=== PATIENT | female | born 1930 | race African-American/Black ===

== ENCOUNTER 2018-04-15 20:51 | Inpatient (IN) | payer MEDICARE ==
[~2018-04-15] VITALS: Ht 154.9 cm; Wt 69.9 kg
[2018-04-15 21:40] VITALS: BP 150/80
[2018-04-16] VITALS: BP 155/84
[2018-04-16] MEDS: D5 1/2NS 1,000 ML IV SCH ×2 (02:31→17:24)
[2018-04-16 05:25] VITALS: BP 153/90
[2018-04-16 08:00] VITALS: BP 151/88
[2018-04-16 09:56] LABS: BASOPHILS % (AUTO) 1.9 % (0.0-2.0); EOSINOPHILS % (AUTO) 3.4 % (0.0-3.0); HEMATOCRIT 46.2 % (37.0-47.0); HEMOGLOBIN 15.5 G/DL (12.0-16.0); LYMPHOCYTES % (AUTO) 16.6 % (20.0-45.0); MEAN CORPUSCULAR VOLUME 91 FL (80-99); MONOCYTES % (AUTO) 13.9 % (1.0-10.0); NEUTROPHILS % (AUTO) 64.2 % (45.0-75.0); PLATELET COUNT 241 K/UL (150-450); RED BLOOD COUNT 5.07 M/UL (4.20-5.40); RED CELL DISTRIBUTION WIDTH 12.3 % (11.6-14.8); WHITE BLOOD COUNT 4.4 K/UL (4.8-10.8)
[2018-04-16 09:57] LABS: ALANINE AMINOTRANSFERASE 14 U/L (12-78); ALBUMIN 3.1 G/DL (3.4-5.0); ALBUMIN/GLOBULIN RATIO 0.8 (1.0-2.7); ALKALINE PHOSPHATASE 84 U/L (46-116); ANION GAP 8 mmol/L (5-15); ASPARTATE AMINO TRANSFERASE 19 U/L (15-37); BILIRUBIN,TOTAL 0.9 MG/DL (0.2-1.0); BLOOD UREA NITROGEN 7 mg/dL (7-18); CALCIUM 9.5 MG/DL (8.5-10.1); CARBON DIOXIDE 26 MMOL/L (21-32); CHLORIDE 105 MMOL/L (98-107); CREATININE 0.7 MG/DL (0.55-1.30); PHOSPHORUS 2.7 MG/DL (2.5-4.9); POTASSIUM 3.4 MMOL/L (3.5-5.1); SODIUM 139 MMOL/L (136-145)
[2018-04-16 12:00] VITALS: BP 159/79
--- NOTE | 2018-04-16 13:44 | Consultation ---
History of Present Illness General Date patient seen: Apr 16, 2018 Present Illness HPI 88 year old female with hx of dementia was taken by paramedics to [facility] with CC of confusion. she was found by her landlord on the floor, not being able to get up and was confused. Initial w/u in [place] was negative. She is transferred to [facility] for further w/u. Pt is only oriented to herself. Agitated at times and wants to get up and walk. Allergies: Coded Allergies: NO KNOWN ALLERGIES (Verified Allergy, Unknown, 04/16/18) Patient History Healthcare decision maker N Resuscitation status Advanced Directive on File Past Medical/Surgical History Past Medical/Surgical History: (1) Advanced dementia Review of Systems All Other Systems: negative except mentioned in HPI Physical Exam General Appearance: cachetic Lines, tubes and drains: peripheral HEENT: normocephalic, atraumatic Neck: non-tender, supple Respiratory/Chest: chest wall non-tender, lungs clear Cardiovascular/Chest: normal peripheral pulses, normal rate Abdomen: normal bowel sounds Genitourinary/Rectal: normal genital exam Extremities: normal range of motion Last 24 Hour Vital Signs Date Time Temp Pulse Resp B/P (MAP) Pulse Ox O2 Delivery O2 Flow Rate FiO2 04/16/18 12:00 98.4 72 18 159/79 (105) 98 98.4 04/16/18 09:00 Room Air 04/16/18 08:00 98.2 69 19 151/88 (109) 98 98.2 04/16/18 05:25 153/90 (111) 04/16/18 05:16 97.1 75 18 100 97.1 04/16/18 00:00 97.0 78 18 155/84 (107) 97 97.0 04/15/18 22:00 Room Air 04/15/18 21:40 97.7 77 18 150/80 (103) 98 97.7 Intake and Output 04/15/18 04/16/18 19:00 07:00 # Voids 1 Laboratory Tests Test 04/16/18 08:50 White Blood Count 4.4 K/UL (4.8-10.8) L Red Blood Count 5.07 M/UL (4.20-5.40) Hemoglobin 15.5 G/DL (12.0-16.0) Hematocrit 46.2 % (37.0-47.0) Mean Corpuscular Volume 91 FL (80-99) Mean Corpuscular Hemoglobin 30.5 PG (27.0-31.0) Mean Corpuscular Hemoglobin Concent 33.5 G/DL (32.0-36.0) Red Cell Distribution Width 12.3 % (11.6-14.8) Platelet Count 241 K/UL (150-450) Mean Platelet Volume 9.0 FL (6.5-10.1) Neutrophils (%) (Auto) 64.2 % (45.0-75.0) Lymphocytes (%) (Auto) 16.6 % (20.0-45.0) L Monocytes (%) (Auto) 13.9 % (1.0-10.0) H Eosinophils (%) (Auto) 3.4 % (0.0-3.0) H Basophils (%) (Auto) 1.9 % (0.0-2.0) Sodium Level 139 MMOL/L (136-145) Potassium Level 3.4 MMOL/L (3.5-5.1) L Chloride Level 105 MMOL/L (98-107) Carbon Dioxide Level 26 MMOL/L (21-32) Anion Gap 8 mmol/L (5-15) Blood Urea Nitrogen 7 mg/dL (7-18) Creatinine 0.7 MG/DL (0.55-1.30) Estimat Glomerular Filtration Rate mL/min (>60) Glucose Level 94 MG/DL (74-106) Calcium Level 9.5 MG/DL (8.5-10.1) Phosphorus Level 2.7 MG/DL (2.5-4.9) Magnesium Level 1.8 MG/DL (1.8-2.4) Total Bilirubin 0.9 MG/DL (0.2-1.0) Aspartate Amino Transf (AST/SGOT) 19 U/L (15-37) Alanine Aminotransferase (ALT/SGPT) 14 U/L (12-78) Alkaline Phosphatase 84 U/L (46-116) Troponin I 0.018 ng/mL (0.000-0.056) Total Protein 6.8 G/DL (6.4-8.2) Albumin 3.1 G/DL (3.4-5.0) L Globulin 3.7 g/dL Albumin/Globulin Ratio 0.8 (1.0-2.7) L Height (Feet): 5 Height (Inches): 1.00 Weight (Pounds): 106 Medications Current Medications Medications (Trade) Dose Ordered Sig/Lucio Route PRN Reason Start Time Stop Time Status Last Admin Dose Admin Acetaminophen (Tylenol) 650 mg Q6H PRN ORAL Mild Pain/Temp > 100.5 04/16/18 00:00 05/16/18 00:00 Dextrose/Sodium Chloride 1,000 ml @ 75 mls/hr [id number] IV 04/16/18 02:00 05/16/18 01:59 04/16/18 02:31 Lorazepam (Ativan) 0.5 mg Q6H PRN ORAL For Anxiety 04/16/18 06:45 04/23/18 06:44 Assessment/Plan Problem List: (1) Severe protein-calorie malnutrition ICD Codes: E43 - Unspecified severe protein-calorie malnutrition SNOMED: 009719488 (2) Failure to thrive SNOMED: 96141644 (3) Advanced dementia ICD Codes: F03.90 - Unspecified dementia without behavioral disturbance SNOMED: 81241151 Assessment/Plan psych evaluation pt/ot social service evaluation for safety of home dvt prophylaxis symptomatic treatment Gregor Jacobson MD Apr 16, 2018 13:44
--- NOTE | 2018-04-16 13:55 | Consultation ---
History of Present Illness General Date patient seen: Apr 16, 2018 Present Illness HPI 88 year old female with hx of dementia was taken by paramedics to [facility] with CC of confusion. the pt has been having waxing and waning of conciseness agitated sitter in room Allergies: Coded Allergies: NO KNOWN ALLERGIES (Verified Allergy, Unknown, 04/16/18) Patient History Limited by: medical condition History Provided By: Patient, Medical Record, PMD Healthcare decision maker N Resuscitation status Advanced Directive on File Past Medical/Surgical History Past Medical/Surgical History: (1) Altered mental status (2) Advanced dementia (3) Failure to thrive (4) Severe protein-calorie malnutrition Review of Systems Psychiatric: Reports: prior hx, anxiety, depressed feelings Physical Exam General Appearance: no apparent distress, alert, confused Neurologic: depressed affect Last 24 Hour Vital Signs Date Time Temp Pulse Resp B/P (MAP) Pulse Ox O2 Delivery O2 Flow Rate FiO2 04/16/18 12:00 98.4 72 18 159/79 (105) 98 98.4 04/16/18 09:00 Room Air 04/16/18 08:00 98.2 69 19 151/88 (109) 98 98.2 04/16/18 05:25 153/90 (111) 04/16/18 05:16 97.1 75 18 100 97.1 04/16/18 00:00 97.0 78 18 155/84 (107) 97 97.0 04/15/18 22:00 Room Air 04/15/18 21:40 97.7 77 18 150/80 (103) 98 97.7 Intake and Output 04/15/18 04/16/18 19:00 07:00 # Voids 1 Laboratory Tests Test 04/16/18 08:50 White Blood Count 4.4 K/UL (4.8-10.8) L Red Blood Count 5.07 M/UL (4.20-5.40) Hemoglobin 15.5 G/DL (12.0-16.0) Hematocrit 46.2 % (37.0-47.0) Mean Corpuscular Volume 91 FL (80-99) Mean Corpuscular Hemoglobin 30.5 PG (27.0-31.0) Mean Corpuscular Hemoglobin Concent 33.5 G/DL (32.0-36.0) Red Cell Distribution Width 12.3 % (11.6-14.8) Platelet Count 241 K/UL (150-450) Mean Platelet Volume 9.0 FL (6.5-10.1) Neutrophils (%) (Auto) 64.2 % (45.0-75.0) Lymphocytes (%) (Auto) 16.6 % (20.0-45.0) L Monocytes (%) (Auto) 13.9 % (1.0-10.0) H Eosinophils (%) (Auto) 3.4 % (0.0-3.0) H Basophils (%) (Auto) 1.9 % (0.0-2.0) Sodium Level 139 MMOL/L (136-145) Potassium Level 3.4 MMOL/L (3.5-5.1) L Chloride Level 105 MMOL/L (98-107) Carbon Dioxide Level 26 MMOL/L (21-32) Anion Gap 8 mmol/L (5-15) Blood Urea Nitrogen 7 mg/dL (7-18) Creatinine 0.7 MG/DL (0.55-1.30) Estimat Glomerular Filtration Rate mL/min (>60) Glucose Level 94 MG/DL (74-106) Calcium Level 9.5 MG/DL (8.5-10.1) Phosphorus Level 2.7 MG/DL (2.5-4.9) Magnesium Level 1.8 MG/DL (1.8-2.4) Total Bilirubin 0.9 MG/DL (0.2-1.0) Aspartate Amino Transf (AST/SGOT) 19 U/L (15-37) Alanine Aminotransferase (ALT/SGPT) 14 U/L (12-78) Alkaline Phosphatase 84 U/L (46-116) Troponin I 0.018 ng/mL (0.000-0.056) Total Protein 6.8 G/DL (6.4-8.2) Albumin 3.1 G/DL (3.4-5.0) L Globulin 3.7 g/dL Albumin/Globulin Ratio 0.8 (1.0-2.7) L Height (Feet): 5 Height (Inches): 1.00 Weight (Pounds): 106 Medications Current Medications Medications (Trade) Dose Ordered Sig/Lucio Route PRN Reason Start Time Stop Time Status Last Admin Dose Admin Acetaminophen (Tylenol) 650 mg Q6H PRN ORAL Mild Pain/Temp > 100.5 04/16/18 00:00 05/16/18 00:00 Dextrose/Sodium Chloride 1,000 ml @ 75 mls/hr [id number] IV 04/16/18 02:00 05/16/18 01:59 04/16/18 02:31 Lorazepam (Ativan) 0.5 mg Q6H PRN ORAL For Anxiety 04/16/18 06:45 04/23/18 06:44 Assessment/Plan Assessment/Plan encephalopathy due to [facility] soft restraint dc sitter Seroquel prn and standing Tereza Macedo MD Apr 16, 2018 13:55
--- NOTE | 2018-04-16 15:36 | History & Physical ---
History and Physical History & Physicial Bassem Escudero MD Apr 16, 2018 15:35
[2018-04-16 16:00] VITALS: BP 132/70
[2018-04-16 21:00] VITALS: BP 122/66
--- NOTE | 2018-04-16 21:15 | History and Physical Report ---
DATE OF ADMISSION: 04/15/2018 CHIEF COMPLAINT: Transferred from the [facility] due to the altered mental status. HISTORY OF PRESENT ILLNESS: This is an 88-year-old very delightful female with past medical history significant for Alzheimer dementia, who was presented to the hospital from [facility] due to confusion and altered mental status. The patient was brought in by the EMS complaining about more altered than usual. She was found by the landlord sitting on the floor and arrived soiled in the ER. Shortly after initial evaluation, the patient was transferred to the [facility] for further evaluation. Extensive workup done at the [facility] including blood work, CT scan, urinalysis was essentially unremarkable. PAST MEDICAL HISTORY/PAST SURGICAL HISTORY: Significant for Alzheimer's. The patients history is very limited secondary to the patient's status at this time, very forgetful and agitated. History is mostly taken from the ER chart and EMS documentation. MEDICATIONS AT HOME: Unknown. FAMILY HISTORY: Noncontributory. ALLERGIES: No known drug allergies. SOCIAL HISTORY: No smoking, alcohol, or drugs at this time. REVIEW OF SYSTEMS: Very limited. She denies any chest pain or shortness of breath. Denies any nausea or vomiting. PHYSICAL EXAMINATION: VITAL SIGNS: Upon arrival to [place], blood pressure 148/91, pulse of 72, respirations 16, temperature 97.8. GENERAL: The patient is awake, responsive, but alert and oriented x1, to self. Denies any chest pain or shortness of breath. Very agitated. HEAD AND NECK: Pupils are equal and reactive to light. Anicteric. Neck was supple. No JVD. LUNGS: Good air entry. No wheezing or rales. Poor inspiratory effort. HEART: S1 and S2. Regular rhythm. Systolic ejection murmur was noted on chest wall, left side of the chest. ABDOMEN: Soft, nondistended, nontender. Positive bowel sounds. EXTREMITIES: No cyanosis, clubbing, or edema. NEUROLOGIC: Cranial nerves II through XII grossly intact. The patient is moving all the extremities spontaneously. Gait was not assessed due to the patient's status. RECTAL: Refused and deferred. GENITOURINARY: Refused and deferred. LABORATORY DATA: Upon arrival to [facility], sodium 139, potassium 3.4, chloride 105, bicarbonate 26, BUN 7, creatinine 0.7, glucose 94, calcium is 9.5, phosphorus 2.7, magnesium 1.8, AST of 19, ALT of 14, alkaline phosphatase 84. First troponin 0.018. Albumin is 3.1. WBC of 4.4, hemoglobin 15, hematocrit 46, platelet is 241,000. The patient's urinalysis at the [place] showed that positive leukocytosis, 5 ketones, 11-[address] of the brain showed no acute findings. No significant abnormality was identified. ASSESSMENT: 1. Altered mental status, possibly due to toxic metabolic encephalopathy. 2. Dementia. 3. Mild dehydration. 4. Hypokalemia. PLAN: Admit the patient to medical/surgical. We will follow up with Psychiatry recommendation. Monitor laboratory. hot iron worker consultation for possible placement. IV hydration. Code status at this time is Full Code. DVT prophylaxis, heparin subcutaneous. Bassem Escudero M.D. DR: Fernandez JOB#: [id number] CC:
[2018-04-17] VITALS (7 sets, daily range): BP systolic 131–143; BP diastolic 63–92
[2018-04-17] MEDS: D5 1/2NS 1,000 ML IV SCH ×3 (04:22→20:31)
--- NOTE | 2018-04-17 09:19 | Pulmonology Progress Note ---
Assessment/Plan Assessment/Plan ASSESSMENT acute toxic metabolic encephalopathy possibly due to dehydration dehydration advanced dementia severe protein calorie malnutrition hypokalemia failure to thrive pyuria, possible UTI PLAN OF CARE Med Surg floor IV fluids monitor renal parameters, electrolytes, correct electrolytes as needed avoid nephrotoxic psych eval noted per psychiatrist encephalopathy secondary to general medical condition patient started on Seroquel , per psych; discussed with nurse, will inform psych MD about excessive somnolence after Seroquel CT head in [place] no acute IC pathology, UA + pyuria , check urine cx, and do straight cath if needed DVT prophylaxis PT /OT dietary eval bowel regimen supportive care social service eval for home safety and probable placement case discussed and evaluated by supervising physician Subjective Allergies: Coded Allergies: NO KNOWN ALLERGIES (Verified Allergy, Unknown, 04/16/18) Subjective weak, lsomnolent difficult to arouse earlier had AM had Seroquel denied chest pain, SOB Objective Last 24 Hour Vital Signs Date Time Temp Pulse Resp B/P (MAP) Pulse Ox O2 Delivery O2 Flow Rate FiO2 04/17/18 08:09 99.3 63 18 136/68 (90) 97 99.3 04/17/18 04:00 97.3 68 19 138/66 (90) 96 97.3 04/17/18 00:00 98.4 74 16 131/64 (86) 97 98.4 04/16/18 21:59 Room Air 04/16/18 21:00 97.1 68 17 122/66 (84) 97 97.1 04/16/18 16:00 98.5 99 19 132/70 (90) 96 98.5 04/16/18 12:00 98.4 72 18 159/79 (105) 98 98.4 Intake and Output 04/16/18 04/17/18 19:00 07:00 Intake Total 1185 ml 675 ml Output Total 300 ml Balance 1185 ml 375 ml Intake Oral 660 ml IV Total 525 ml 675 ml Output Urine Total 300 ml # Voids 3 # Bowel Movements 1 General Appearance: no acute distress, other - frail elderly female HEENT: normocephalic, atraumatic, anicteric Respiratory/Chest: lungs clear - with moderate air exchange Cardiovascular: normal rate, no JVD Abdomen: normal bowel sounds, soft, non tender, no organomegaly Extremities: no edema, pedal pulses normal Neurologic/Psychiatric: abnormal gait, alert, responsive Musculoskeletal: atrophy - BLE Current Medications Medications (Trade) Dose Ordered Sig/Lucio Route PRN Reason Start Time Stop Time Status Last Admin Dose Admin Acetaminophen (Tylenol) 650 mg Q6H PRN ORAL Mild Pain/Temp > 100.5 04/16/18 00:00 05/16/18 00:00 Dextrose/Sodium Chloride 1,000 ml @ 75 mls/hr [id number] IV 04/16/18 02:00 05/16/18 01:59 04/17/18 04:22 Lorazepam (Ativan) 0.5 mg Q6H PRN ORAL For Anxiety 04/16/18 06:45 04/23/18 06:44 Quetiapine Fumarate (SEROquel) 25 mg EVERY 6 HOURS PRN ORAL For Anxiety 04/16/18 14:00 05/16/18 13:59 Quetiapine Fumarate (SEROquel) 25 mg Q12HR ORAL 04/16/18 21:00 05/16/18 20:59 04/17/18 08:23 Kelly Jacob NP Apr 17, 2018 09:19
--- NOTE | 2018-04-17 17:59 | Internal Med Progress Note ---
Subjective Date of Service: Apr 17, 2018 Physician Name XeniaReece Attending Physician Bassem Escudero MD Current Medications Medications (Trade) Dose Ordered Sig/Lucio Route PRN Reason Start Time Stop Time Status Last Admin Dose Admin Acetaminophen (Tylenol) 650 mg Q6H PRN ORAL Mild Pain/Temp > 100.5 04/16/18 00:00 05/16/18 00:00 Dextrose/Sodium Chloride 1,000 ml @ 75 mls/hr [id number] IV 04/16/18 02:00 05/16/18 01:59 04/17/18 04:22 Lorazepam (Ativan) 0.5 mg Q6H PRN ORAL For Anxiety 04/16/18 06:45 04/23/18 06:44 Quetiapine Fumarate (SEROquel) 25 mg EVERY 6 HOURS PRN ORAL For Anxiety 04/16/18 14:00 05/16/18 13:59 Quetiapine Fumarate (SEROquel) 25 mg Q12HR ORAL 04/16/18 21:00 05/16/18 20:59 04/17/18 08:23 Allergies: Coded Allergies: NO KNOWN ALLERGIES (Verified Allergy, Unknown, 04/16/18) ROS Limited/Unobtainable: No Constitutional: Reports: no symptoms HEENT: Reports: no symptoms Cardiovascular: Reports: no symptoms Respiratory: Reports: no symptoms Gastrointestinal/Abdominal: Reports: no symptoms Genitourinary: Reports: no symptoms Neurologic/Psychiatric: Reports: no symptoms Subjective 88 YO F admitted with altered mental status. Cover for Int Jose Manuel-Dr Escudero Objective Last Vital Signs Date Time Temp Pulse Resp B/P (MAP) Pulse Ox O2 Delivery O2 Flow Rate FiO2 04/17/18 16:07 97.2 68 16 133/63 (86) 97 97.2 04/17/18 10:33 Room Air General Appearance: WD/WN, no apparent distress, alert EENT: PERRL/EOMI, normal ENT inspection, TMs normal Neck: non-tender, normal alignment, supple, normal inspection Cardiovascular: normal peripheral pulses, normal rate, regular rhythm, no gallop/murmur, no JVD Respiratory/Chest: chest wall non-tender, lungs clear, normal breath sounds, no respiratory distress, no accessory muscle use Abdomen: normal bowel sounds, non tender, soft, no organomegaly, no mass Extremities: normal range of motion, non-tender Neurologic: delineator II-XII grossly normal, no motor/sensory deficits Skin: normal pigmentation, warm/dry Intake and Output 04/16/18 04/17/18 19:00 07:00 Intake Total 1185 ml 675 ml Output Total 300 ml Balance 1185 ml 375 ml Intake Oral 660 ml IV Total 525 ml 675 ml Output Urine Total 300 ml # Voids 3 # Bowel Movements 1 Assessment/Plan Problem List: (1) Alzheimer's dementia (2) Dehydration (3) Altered mental status Assessment & Plan: Dementia vs psychosis - see psych note (4) Severe protein-calorie malnutrition (5) Failure to thrive (6) Hypokalemia Status: progressing Reece Michaels MD Apr 17, 2018 17:59
[2018-04-18] VITALS: BP 132/62
[2018-04-18] MEDS: LORazepam 0.5mg tab ORAL PRN ×2 (00:24→06:32)
[2018-04-18 04:00] VITALS: BP 140/103
[2018-04-18 07:14] LABS: BASOPHILS % (AUTO) 0.6 % (0.0-2.0); EOSINOPHILS % (AUTO) 3.4 % (0.0-3.0); HEMATOCRIT 46.8 % (37.0-47.0); HEMOGLOBIN 15.5 G/DL (12.0-16.0); LYMPHOCYTES % (AUTO) 19.4 % (20.0-45.0); MEAN CORPUSCULAR VOLUME 92 FL (80-99); MONOCYTES % (AUTO) 15.1 % (1.0-10.0); NEUTROPHILS % (AUTO) 61.5 % (45.0-75.0); PLATELET COUNT 225 K/UL (150-450); RED BLOOD COUNT 5.07 M/UL (4.20-5.40); RED CELL DISTRIBUTION WIDTH 12.2 % (11.6-14.8); WHITE BLOOD COUNT 4.5 K/UL (4.8-10.8)
[2018-04-18 07:44] LABS: ANION GAP 6 mmol/L (5-15); BLOOD UREA NITROGEN 7 mg/dL (7-18); CALCIUM 9.8 MG/DL (8.5-10.1); CARBON DIOXIDE 28 MMOL/L (21-32); CHLORIDE 108 MMOL/L (98-107); CREATININE 0.8 MG/DL (0.55-1.30); POTASSIUM 3.8 MMOL/L (3.5-5.1); SODIUM 142 MMOL/L (136-145)
[2018-04-18 08:00] VITALS: BP 127/68
--- NOTE | 2018-04-18 08:02 | Pulmonology Progress Note ---
Assessment/Plan Assessment/Plan ASSESSMENT acute toxic metabolic encephalopathy possibly due to dehydration dehydration advanced dementia severe protein calorie malnutrition hypokalemia failure to thrive pyuria, possible UTI PLAN OF CARE Med Surg floor IV fluids and push po fluids monitor renal parameters, electrolytes, correct electrolytes as needed avoid nephrotoxic psych eval noted per psychiatrist encephalopathy secondary to general medical condition patient started on Seroquel , per psych; discussed with nurse, will inform psych MD about excessive somnolence after Seroquel CT head in [place] no acute IC pathology, UA + pyuria , check urine cx, and do straight cath if needed urine cx intiially +GNB with small colony count 40-50, repeated urine cx negative, probably contamination DVT prophylaxis PT /OT dietary eval bowel regimen supportive care social service eval for home safety and probable placement case discussed and evaluated by supervising physician Subjective Allergies: Coded Allergies: NO KNOWN ALLERGIES (Verified Allergy, Unknown, 04/16/18) Subjective weak, awake, alert earlier had AM had Seroquel denied chest pain, SOB Objective Last 24 Hour Vital Signs Date Time Temp Pulse Resp B/P (MAP) Pulse Ox O2 Delivery O2 Flow Rate FiO2 04/18/18 04:00 98.2 76 19 140/103 (115) 98 98.2 04/18/18 00:00 97.9 80 18 132/62 (85) 97 97.9 04/17/18 21:00 Room Air 04/17/18 20:00 98.1 77 17 143/92 (109) 98 98.1 04/17/18 16:07 97.2 68 16 133/63 (86) 97 97.2 04/17/18 12:00 97.3 72 19 137/70 (92) 97 97.3 04/17/18 10:33 Room Air 04/17/18 08:09 99.3 63 18 136/68 (90) 97 99.3 Intake and Output 04/17/18 04/18/18 19:00 07:00 Intake Total 975 ml 1380 ml Output Total 375 ml Balance 600 ml 1380 ml Intake Oral 600 ml 480 ml IV Total 375 ml 900 ml Output Urine Total 375 ml # Voids 1 3 Objective General Appearance: no acute distress, frail elderly female HEENT: normocephalic, atraumatic, anicteric Respiratory/Chest: lungs clear - with moderate air exchange Cardiovascular: normal rate, no JVD Abdomen: normal bowel sounds, soft, non tender, no organomegaly Extremities: no edema, pedal pulses normal Neurologic/Psychiatric: abnormal gait, alert, responsive Musculoskeletal: atrophy - BLE Laboratory Tests 04/18/18 05:40: White Blood Count 4.5L, Red Blood Count 5.07, Hemoglobin 15.5, Hematocrit 46.8, Mean Corpuscular Volume 92, Mean Corpuscular Hemoglobin 30.6, Mean Corpuscular Hemoglobin Concent 33.2, Red Cell Distribution Width 12.2, Platelet Count 225, Mean Platelet Volume 8.9, Neutrophils (%) (Auto) 61.5, Lymphocytes (%) (Auto) 19.4L, Monocytes (%) (Auto) 15.1H, Eosinophils (%) (Auto) 3.4H, Basophils (%) ( Auto) 0.6, Sodium Level 142, Potassium Level 3.8, Chloride Level 108H, Carbon Dioxide Level 28, Anion Gap 6, Blood Urea Nitrogen 7, Creatinine 0.8, Estimat Glomerular Filtration Rate , Glucose Level 89, Calcium Level 9.8 Current Medications Medications (Trade) Dose Ordered Sig/Lucio Route PRN Reason Start Time Stop Time Status Last Admin Dose Admin Acetaminophen (Tylenol) 650 mg Q6H PRN ORAL Mild Pain/Temp > 100.5 04/16/18 00:00 05/16/18 00:00 Dextrose/Sodium Chloride 1,000 ml @ 75 mls/hr [id number] IV 04/16/18 02:00 05/16/18 01:59 04/17/18 20:31 Lorazepam (Ativan) 0.5 mg Q6H PRN ORAL For Anxiety 04/16/18 06:45 04/23/18 06:44 04/18/18 06:32 Quetiapine Fumarate (SEROquel) 25 mg EVERY 6 HOURS PRN ORAL For Anxiety 04/16/18 14:00 05/16/18 13:59 Quetiapine Fumarate (SEROquel) 25 mg Q12HR ORAL 04/16/18 21:00 05/16/18 20:59 04/17/18 20:32 Kelly Jacob NP Apr 18, 2018 08:02
[2018-04-18 11:55] VITALS: BP 121/67
[2018-04-18] MEDS ORDERED: D5 1/2NS 1000ml IV ONE (15:18)
--- NOTE | 2018-04-18 15:25 | Internal Med Progress Note ---
Subjective Date of Service: Apr 18, 2018 Physician Name XeniaReece Attending Physician Bassem Escudero MD Current Medications Medications (Trade) Dose Ordered Sig/Lucio Route PRN Reason Start Time Stop Time Status Last Admin Dose Admin Acetaminophen (Tylenol) 650 mg Q6H PRN ORAL Mild Pain/Temp > 100.5 04/16/18 00:00 05/16/18 00:00 Dextrose/Sodium Chloride 1,000 ml @ 75 mls/hr [id number] IV 04/16/18 02:00 05/16/18 01:59 04/17/18 20:31 Lorazepam (Ativan) 0.5 mg Q6H PRN ORAL For Anxiety 04/16/18 06:45 04/23/18 06:44 04/18/18 06:32 Quetiapine Fumarate (SEROquel) 25 mg EVERY 6 HOURS PRN ORAL For Anxiety 04/16/18 14:00 05/16/18 13:59 Quetiapine Fumarate (SEROquel) 25 mg Q12HR ORAL 04/16/18 21:00 05/16/18 20:59 04/18/18 08:39 Allergies: Coded Allergies: NO KNOWN ALLERGIES (Verified Allergy, Unknown, 04/16/18) ROS Limited/Unobtainable: Yes Subjective 88 YO F admitted with altered mental status. Cover for Int Med-Dr Escudero Objective Last Vital Signs Date Time Temp Pulse Resp B/P (MAP) Pulse Ox O2 Delivery O2 Flow Rate FiO2 04/18/18 11:55 97.2 80 20 121/67 (85) 98 97.2 04/18/18 09:00 Room Air Laboratory Tests Test 04/18/18 05:40 White Blood Count 4.5 K/UL (4.8-10.8) L Red Blood Count 5.07 M/UL (4.20-5.40) Hemoglobin 15.5 G/DL (12.0-16.0) Hematocrit 46.8 % (37.0-47.0) Mean Corpuscular Volume 92 FL (80-99) Mean Corpuscular Hemoglobin 30.6 PG (27.0-31.0) Mean Corpuscular Hemoglobin Concent 33.2 G/DL (32.0-36.0) Red Cell Distribution Width 12.2 % (11.6-14.8) Platelet Count 225 K/UL (150-450) Mean Platelet Volume 8.9 FL (6.5-10.1) Neutrophils (%) (Auto) 61.5 % (45.0-75.0) Lymphocytes (%) (Auto) 19.4 % (20.0-45.0) L Monocytes (%) (Auto) 15.1 % (1.0-10.0) H Eosinophils (%) (Auto) 3.4 % (0.0-3.0) H Basophils (%) (Auto) 0.6 % (0.0-2.0) Sodium Level 142 MMOL/L (136-145) Potassium Level 3.8 MMOL/L (3.5-5.1) Chloride Level 108 MMOL/L (98-107) H Carbon Dioxide Level 28 MMOL/L (21-32) Anion Gap 6 mmol/L (5-15) Blood Urea Nitrogen 7 mg/dL (7-18) Creatinine 0.8 MG/DL (0.55-1.30) Estimat Glomerular Filtration Rate mL/min (>60) Glucose Level 89 MG/DL (74-106) Calcium Level 9.8 MG/DL (8.5-10.1) Microbiology Date/Time Source Procedure Growth Status 04/17/18 11:00 Straight Cath Urine Culture - Preliminary NO GROWTH Resulted 04/16/18 20:22 Urine,Clean Catch Urine Culture - Preliminary Gram Negative Bacillus 1 Resulted Intake and Output 04/17/18 04/18/18 19:00 07:00 Intake Total 975 ml 1380 ml Output Total 375 ml Balance 600 ml 1380 ml Intake Oral 600 ml 480 ml IV Total 375 ml 900 ml Output Urine Total 375 ml # Voids 1 3 Objective General Appearance: WD/WN, no apparent distress, alert EENT: PERRL/EOMI, normal ENT inspection, TMs normal Neck: non-tender, normal alignment, supple, normal inspection Cardiovascular: normal peripheral pulses, normal rate, regular rhythm, no gallop/murmur, no JVD Respiratory/Chest: chest wall non-tender, lungs clear, normal breath sounds, no respiratory distress, no accessory muscle use Abdomen: normal bowel sounds, non tender, soft, no organomegaly, no mass Extremities: normal range of motion, non-tender Neurologic: food beverage manager II-XII grossly normal, no motor/sensory deficits Skin: normal pigmentation, warm/dry Assessment/Plan Problem List: (1) Alzheimer's dementia (2) Dehydration (3) Altered mental status Assessment & Plan: Dementia vs psychosis - see psych note (4) Severe protein-calorie malnutrition (5) Failure to thrive (6) Hypokalemia Status: not improved Reece Michaels MD Apr 18, 2018 15:25
[2018-04-18 16:00] VITALS: BP 103/68
[2018-04-18 20:00] VITALS: BP 139/74
[2018-04-18] MEDS: D5 1/2NS 1,000 ML IV SCH (20:26)
[2018-04-19] VITALS: BP 145/69
[2018-04-19 04:00] VITALS: BP 141/78
[2018-04-19 07:39] LABS: BASOPHILS % (AUTO) 0.7 % (0.0-2.0); EOSINOPHILS % (AUTO) 3.1 % (0.0-3.0); HEMATOCRIT 45.6 % (37.0-47.0); HEMOGLOBIN 15.4 G/DL (12.0-16.0); LYMPHOCYTES % (AUTO) 16.4 % (20.0-45.0); MEAN CORPUSCULAR VOLUME 92 FL (80-99); MONOCYTES % (AUTO) 13.9 % (1.0-10.0); NEUTROPHILS % (AUTO) 65.9 % (45.0-75.0); PLATELET COUNT 221 K/UL (150-450); RED BLOOD COUNT 4.96 M/UL (4.20-5.40); RED CELL DISTRIBUTION WIDTH 12.3 % (11.6-14.8)
[2018-04-19 07:56] LABS: ANION GAP 7 mmol/L (5-15); BLOOD UREA NITROGEN 5 mg/dL (7-18); CALCIUM 9.6 MG/DL (8.5-10.1); CARBON DIOXIDE 29 MMOL/L (21-32); CHLORIDE 108 MMOL/L (98-107); CREATININE 0.7 MG/DL (0.55-1.30); POTASSIUM 3.4 MMOL/L (3.5-5.1); SODIUM 143 MMOL/L (136-145)
[2018-04-19 08:00] VITALS: BP 165/75
--- NOTE | 2018-04-19 09:13 | Pulmonology Progress Note ---
Assessment/Plan Assessment/Plan ASSESSMENT acute toxic metabolic encephalopathy possibly due to dehydration -resolving dehydration advanced dementia severe protein calorie malnutrition hypokalemia failure to thrive pyuria, possible UTI with E coli PLAN OF CARE Med Surg floor IV fluids and push po fluids monitor renal parameters, electrolytes, correct electrolytes as needed avoid nephrotoxic psych eval noted per psychiatrist encephalopathy secondary to general medical condition patient started on Seroquel , per psych; discussed with nurse, will inform psych MD about excessive somnolence after Seroquel CT head in [place] no acute IC pathology, UA + pyuria , check urine cx, and do straight cath if needed urine cx initially +E coli with small colony count 40-50, repeated urine cx negative, probably contamination DVT prophylaxis PT /OT dietary eval bowel regimen supportive care social service eval for home safety and probable placement dc plan case discussed and evaluated by supervising physician Subjective Allergies: Coded Allergies: NO KNOWN ALLERGIES (Verified Allergy, Unknown, 04/16/18) Subjective weak, awake, alert denied chest pain, SOB K-3.4 Objective Last 24 Hour Vital Signs Date Time Temp Pulse Resp B/P (MAP) Pulse Ox O2 Delivery O2 Flow Rate FiO2 04/19/18 08:08 Room Air 04/19/18 08:00 84 18 165/75 (105) 95 04/19/18 04:00 97.3 70 18 141/78 (99) 100 97.3 04/19/18 00:00 98.1 86 17 145/69 (94) 98 98.1 04/18/18 21:00 Room Air 04/18/18 20:00 97.6 83 18 139/74 (95) 96 97.6 04/18/18 16:00 97.2 67 20 103/68 (80) 95 97.2 04/18/18 11:55 97.2 80 20 121/67 (85) 98 97.2 Intake and Output 04/18/18 04/19/18 19:00 07:00 Intake Total 575 ml 1267.5 ml Balance 575 ml 1267.5 ml Intake Oral 500 ml 480 ml IV Total 75 ml 787.5 ml # Voids 3 3 Objective General Appearance: no acute distress, frail elderly female HEENT: normocephalic, atraumatic, anicteric Respiratory/Chest: lungs clear - with moderate air exchange Cardiovascular: normal rate, no JVD Abdomen: normal bowel sounds, soft, non tender, no organomegaly Extremities: no edema, pedal pulses normal Neurologic/Psychiatric: abnormal gait, alert, responsive Musculoskeletal: atrophy - BLE Microbiology Date/Time Source Procedure Growth Status 04/17/18 11:00 Straight Cath Urine Culture - Preliminary NO GROWTH AFTER 24 HOURS Resulted 04/16/18 20:22 Urine,Clean Catch Urine Culture - Final Escherichia Coli Complete Laboratory Tests 04/19/18 06:20: White Blood Count 5.0, Red Blood Count 4.96, Hemoglobin 15.4, Hematocrit 45.6, Mean Corpuscular Volume 92, Mean Corpuscular Hemoglobin 31.0, Mean Corpuscular Hemoglobin Concent 33.7, Red Cell Distribution Width 12.3, Platelet Count 221, Mean Platelet Volume 8.4, Neutrophils (%) (Auto) 65.9, Lymphocytes (%) (Auto) 16.4L, Monocytes (%) (Auto) 13.9H, Eosinophils (%) (Auto) 3.1H, Basophils (%) ( Auto) 0.7, Sodium Level 143, Potassium Level 3.4L, Chloride Level 108H, Carbon Dioxide Level 29, Anion Gap 7, Blood Urea Nitrogen 5L, Creatinine 0.7, Estimat Glomerular Filtration Rate , Glucose Level 84, Calcium Level 9.6 Current Medications Medications (Trade) Dose Ordered Sig/Lucio Route PRN Reason Start Time Stop Time Status Last Admin Dose Admin Acetaminophen (Tylenol) 650 mg Q6H PRN ORAL Mild Pain/Temp > 100.5 04/16/18 00:00 05/16/18 00:00 04/19/18 00:04 Dextrose/Sodium Chloride 1,000 ml @ 75 mls/hr [id number] IV 04/16/18 02:00 05/16/18 01:59 04/18/18 20:26 Lorazepam (Ativan) 0.5 mg Q6H PRN ORAL For Anxiety 04/16/18 06:45 04/23/18 06:44 04/18/18 06:32 Potassium Chloride (K-Dur) 40 meq ONCE ORAL 04/19/18 09:15 04/19/18 10:15 Quetiapine Fumarate (SEROquel) 25 mg EVERY 6 HOURS PRN ORAL For Anxiety 04/16/18 14:00 05/16/18 13:59 Quetiapine Fumarate (SEROquel) 25 mg Q12HR ORAL 04/16/18 21:00 05/16/18 20:59 04/19/18 08:21 Kelly Jacob NP Apr 19, 2018 09:13
[2018-04-19] MEDS: D5 1/2NS 1,000 ML IV SCH (09:43)
[2018-04-19] MEDS: LORazepam 0.5mg tab ORAL PRN ×2 (12:02→20:20)
[2018-04-19 13:02] VITALS: BP 160/80
--- NOTE | 2018-04-19 15:01 | General Progress Note ---
Assessment/Plan Status: stable Assessment/Plan encephalopathy due to [facility] [place] soft restraint Seroquel prn and standing Subjective Date patient seen: Apr 19, 2018 Neurologic/Psychiatric: Reports: anxiety, depressed, emotional problems Allergies: Coded Allergies: NO KNOWN ALLERGIES (Verified Allergy, Unknown, 04/16/18) Objective Last 24 Hour Vital Signs Date Time Temp Pulse Resp B/P (MAP) Pulse Ox O2 Delivery O2 Flow Rate FiO2 04/19/18 13:02 97.5 86 19 160/80 (106) 96 97.5 04/19/18 08:08 Room Air 04/19/18 08:00 97.4 84 18 165/75 (105) 95 97.4 04/19/18 04:00 97.3 70 18 141/78 (99) 100 97.3 04/19/18 00:00 98.1 86 17 145/69 (94) 98 98.1 04/18/18 21:00 Room Air 04/18/18 20:00 97.6 83 18 139/74 (95) 96 97.6 04/18/18 16:00 97.2 67 20 103/68 (80) 95 97.2 Intake and Output 04/18/18 04/19/18 19:00 07:00 Intake Total 575 ml 1267.5 ml Balance 575 ml 1267.5 ml Intake Oral 500 ml 480 ml IV Total 75 ml 787.5 ml # Voids 3 3 Laboratory Tests 04/19/18 06:20: White Blood Count 5.0, Red Blood Count 4.96, Hemoglobin 15.4, Hematocrit 45.6, Mean Corpuscular Volume 92, Mean Corpuscular Hemoglobin 31.0, Mean Corpuscular Hemoglobin Concent 33.7, Red Cell Distribution Width 12.3, Platelet Count 221, Mean Platelet Volume 8.4, Neutrophils (%) (Auto) 65.9, Lymphocytes (%) (Auto) 16.4L, Monocytes (%) (Auto) 13.9H, Eosinophils (%) (Auto) 3.1H, Basophils (%) ( Auto) 0.7, Sodium Level 143, Potassium Level 3.4L, Chloride Level 108H, Carbon Dioxide Level 29, Anion Gap 7, Blood Urea Nitrogen 5L, Creatinine 0.7, Estimat Glomerular Filtration Rate , Glucose Level 84, Calcium Level 9.6 Height (Feet): 5 Height (Inches): 1.00 Weight (Pounds): 106 General Appearance: alert, confused, moderate distress, agitated Tereza Macedo MD Apr 19, 2018 15:01
[2018-04-19 16:00] VITALS: BP 175/90
--- NOTE | 2018-04-19 18:12 | Internal Med Progress Note ---
Subjective Date of Service: Apr 19, 2018 Physician Name Michaels,Reece Attending Physician Bassem Escudero MD Current Medications Medications (Trade) Dose Ordered Sig/Lucio Route PRN Reason Start Time Stop Time Status Last Admin Dose Admin Acetaminophen (Tylenol) 650 mg Q6H PRN ORAL Mild Pain/Temp > 100.5 04/16/18 00:00 05/16/18 00:00 04/19/18 00:04 Dextrose/Sodium Chloride 1,000 ml @ 75 mls/hr [id number] IV 04/16/18 02:00 05/16/18 01:59 04/19/18 09:43 Lorazepam (Ativan) 0.5 mg Q6H PRN ORAL For Anxiety 04/16/18 06:45 04/23/18 06:44 04/19/18 12:02 Quetiapine Fumarate (SEROquel) 25 mg EVERY 6 HOURS PRN ORAL For Anxiety 04/16/18 14:00 05/16/18 13:59 Quetiapine Fumarate (SEROquel) 25 mg Q12HR ORAL 04/16/18 21:00 05/16/18 20:59 04/19/18 08:21 Allergies: Coded Allergies: NO KNOWN ALLERGIES (Verified Allergy, Unknown, 04/16/18) ROS Limited/Unobtainable: Yes Subjective 88 YO F admitted with altered mental status. Cover for Int Med-Dr Escudero Objective Last Vital Signs Date Time Temp Pulse Resp B/P (MAP) Pulse Ox O2 Delivery O2 Flow Rate FiO2 04/19/18 16:00 99.7 102 20 175/90 (118) 98 99.7 04/19/18 08:08 Room Air Laboratory Tests Test 04/19/18 06:20 White Blood Count 5.0 K/UL (4.8-10.8) Red Blood Count 4.96 M/UL (4.20-5.40) Hemoglobin 15.4 G/DL (12.0-16.0) Hematocrit 45.6 % (37.0-47.0) Mean Corpuscular Volume 92 FL (80-99) Mean Corpuscular Hemoglobin 31.0 PG (27.0-31.0) Mean Corpuscular Hemoglobin Concent 33.7 G/DL (32.0-36.0) Red Cell Distribution Width 12.3 % (11.6-14.8) Platelet Count 221 K/UL (150-450) Mean Platelet Volume 8.4 FL (6.5-10.1) Neutrophils (%) (Auto) 65.9 % (45.0-75.0) Lymphocytes (%) (Auto) 16.4 % (20.0-45.0) L Monocytes (%) (Auto) 13.9 % (1.0-10.0) H Eosinophils (%) (Auto) 3.1 % (0.0-3.0) H Basophils (%) (Auto) 0.7 % (0.0-2.0) Sodium Level 143 MMOL/L (136-145) Potassium Level 3.4 MMOL/L (3.5-5.1) L Chloride Level 108 MMOL/L (98-107) H Carbon Dioxide Level 29 MMOL/L (21-32) Anion Gap 7 mmol/L (5-15) Blood Urea Nitrogen 5 mg/dL (7-18) L Creatinine 0.7 MG/DL (0.55-1.30) Estimat Glomerular Filtration Rate mL/min (>60) Glucose Level 84 MG/DL (74-106) Calcium Level 9.6 MG/DL (8.5-10.1) Microbiology Date/Time Source Procedure Growth Status 04/17/18 11:00 Straight Cath Urine Culture - Preliminary NO GROWTH AFTER 24 HOURS Resulted 04/16/18 20:22 Urine,Clean Catch Urine Culture - Final Escherichia Coli Complete Intake and Output 04/18/18 04/19/18 19:00 07:00 Intake Total 575 ml 1267.5 ml Balance 575 ml 1267.5 ml Intake Oral 500 ml 480 ml IV Total 75 ml 787.5 ml # Voids 3 3 Objective General Appearance: WD/WN, no apparent distress, alert EENT: PERRL/EOMI, normal ENT inspection, TMs normal Neck: non-tender, normal alignment, supple, normal inspection Cardiovascular: normal peripheral pulses, normal rate, regular rhythm, no gallop/murmur, no JVD Respiratory/Chest: chest wall non-tender, lungs clear, normal breath sounds, no respiratory distress, no accessory muscle use Abdomen: normal bowel sounds, non tender, soft, no organomegaly, no mass Extremities: normal range of motion, non-tender 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
[2018-04-19 20:24] VITALS: BP 144/81
[2018-04-20] VITALS (7 sets, daily range): BP systolic 109–160; BP diastolic 59–76
[2018-04-20 07:07] LABS: BASOPHILS % (AUTO) 0.7 % (0.0-2.0); EOSINOPHILS % (AUTO) 2.6 % (0.0-3.0); HEMATOCRIT 48.4 % (37.0-47.0); LYMPHOCYTES % (AUTO) 18.6 % (20.0-45.0); MEAN CORPUSCULAR VOLUME 93 FL (80-99); MONOCYTES % (AUTO) 11.6 % (1.0-10.0); NEUTROPHILS % (AUTO) 66.6 % (45.0-75.0); PLATELET COUNT 249 K/UL (150-450); RED BLOOD COUNT 5.21 M/UL (4.20-5.40); RED CELL DISTRIBUTION WIDTH 12.8 % (11.6-14.8); WHITE BLOOD COUNT 5.7 K/UL (4.8-10.8)
[2018-04-20 07:21] LABS: ANION GAP 7 mmol/L (5-15); BLOOD UREA NITROGEN 5 mg/dL (7-18); CALCIUM 9.8 MG/DL (8.5-10.1); CARBON DIOXIDE 27 MMOL/L (21-32); CHLORIDE 106 MMOL/L (98-107); CREATININE 0.6 MG/DL (0.55-1.30); POTASSIUM 4.5 MMOL/L (3.5-5.1); SODIUM 140 MMOL/L (136-145)
--- NOTE | 2018-04-20 11:58 | Pulmonology Progress Note ---
Assessment/Plan Problems: (1) Severe protein-calorie malnutrition (2) Failure to thrive (3) Advanced dementia Assessment/Plan was agitated last night still sedated because of the ativan she got dc planning adjust psych meds/ symptomatic treatment dvt prophylaxis Subjective ROS Limited/Unobtainable: No Constitutional: Reports: no symptoms HEENT: Repors: no symptoms Respiratory: Reports: no symptoms Allergies: Coded Allergies: NO KNOWN ALLERGIES (Verified Allergy, Unknown, 04/16/18) Objective Last 24 Hour Vital Signs Date Time Temp Pulse Resp B/P (MAP) Pulse Ox O2 Delivery O2 Flow Rate FiO2 04/20/18 08:05 Room Air 04/20/18 08:00 98.1 83 19 160/75 (103) 100 98.1 04/20/18 04:48 98.3 79 17 149/76 (100) 93 98.3 04/20/18 00:00 98.1 80 17 133/76 (95) 97 98.1 04/19/18 21:00 Room Air 04/19/18 20:24 98.4 86 18 144/81 (102) 93 98.4 04/19/18 16:00 99.7 102 20 175/90 (118) 98 99.7 04/19/18 13:02 97.5 86 19 160/80 (106) 96 97.5 Intake and Output 04/19/18 04/20/18 19:00 07:00 Intake Total 1620 ml 840 ml Balance 1620 ml 840 ml Intake Oral 870 ml 840 ml IV Total 750 ml # Voids 2 4 General Appearance: WD/WN HEENT: normocephalic, atraumatic Respiratory/Chest: chest wall non-tender, normal breath sounds Cardiovascular: normal peripheral pulses, normal rate Abdomen: normal bowel sounds, soft, non tender Genitourinary: normal external genitalia Extremities: no cyanosis Skin: no ulcers 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 Lymphatic: no neck adenopathy Laboratory Tests 04/20/18 06:00: White Blood Count 5.7, Red Blood Count 5.21, Hemoglobin 16.0, Hematocrit 48.4H, Mean Corpuscular Volume 93, Mean Corpuscular Hemoglobin 30.7, Mean Corpuscular Hemoglobin Concent 33.1, Red Cell Distribution Width 12.8, Platelet Count 249, Mean Platelet Volume 8.3, Neutrophils (%) (Auto) 66.6, Lymphocytes (%) (Auto) 18.6L, Monocytes (%) (Auto) 11.6H, Eosinophils (%) (Auto) 2.6, Basophils (%) ( Auto) 0.7, Sodium Level 140, Potassium Level 4.5, Chloride Level 106, Carbon Dioxide Level 27, Anion Gap 7, Blood Urea Nitrogen 5L, Creatinine 0.6, Estimat Glomerular Filtration Rate , Glucose Level 80, Calcium Level 9.8 Current Medications Medications (Trade) Dose Ordered Sig/Lucio Route PRN Reason Start Time Stop Time Status Last Admin Dose Admin Acetaminophen (Tylenol) 650 mg Q6H PRN ORAL Mild Pain/Temp > 100.5 04/16/18 00:00 05/16/18 00:00 04/19/18 00:04 Lorazepam (Ativan) 0.5 mg Q6H PRN ORAL For Anxiety 04/16/18 06:45 04/23/18 06:44 04/19/18 20:20 Quetiapine Fumarate (SEROquel) 25 mg EVERY 6 HOURS PRN ORAL For Anxiety 04/16/18 14:00 05/16/18 13:59 Quetiapine Fumarate (SEROquel) 25 mg Q12HR ORAL 04/16/18 21:00 05/16/18 20:59 04/20/18 08:22 Gregor Jacobson MD Apr 20, 2018 11:58
[2018-04-20] MEDS ORDERED: D5 1/2NS 1000ml IV ONE (15:16)
--- NOTE | 2018-04-20 17:38 | Internal Med Progress Note ---
Subjective Date of Service: Apr 20, 2018 Physician Name XeniaReece Attending Physician Bassem Escudero MD Current Medications Medications (Trade) Dose Ordered Sig/Lucio Route PRN Reason Start Time Stop Time Status Last Admin Dose Admin Acetaminophen (Tylenol) 650 mg Q6H PRN ORAL Mild Pain/Temp > 100.5 04/16/18 00:00 05/16/18 00:00 04/19/18 00:04 Lorazepam (Ativan) 0.5 mg Q6H PRN ORAL For Anxiety 04/16/18 06:45 04/23/18 06:44 04/19/18 20:20 Quetiapine Fumarate (SEROquel) 25 mg EVERY 6 HOURS PRN ORAL For Anxiety 04/16/18 14:00 05/16/18 13:59 Quetiapine Fumarate (SEROquel) 25 mg Q12HR ORAL 04/16/18 21:00 05/16/18 20:59 04/20/18 08:22 Allergies: Coded Allergies: NO KNOWN ALLERGIES (Verified Allergy, Unknown, 04/16/18) ROS Limited/Unobtainable: Yes Subjective 88 YO F admitted with altered mental status. Cover for Int Med-Dr Escudero Objective Last Vital Signs Date Time Temp Pulse Resp B/P (MAP) Pulse Ox O2 Delivery O2 Flow Rate FiO2 04/20/18 16:00 98.0 79 18 109/59 (76) 99 98.0 04/20/18 08:05 Room Air Laboratory Tests Test 04/20/18 06:00 White Blood Count 5.7 K/UL (4.8-10.8) Red Blood Count 5.21 M/UL (4.20-5.40) Hemoglobin 16.0 G/DL (12.0-16.0) Hematocrit 48.4 % (37.0-47.0) H Mean Corpuscular Volume 93 FL (80-99) Mean Corpuscular Hemoglobin 30.7 PG (27.0-31.0) Mean Corpuscular Hemoglobin Concent 33.1 G/DL (32.0-36.0) Red Cell Distribution Width 12.8 % (11.6-14.8) Platelet Count 249 K/UL (150-450) Mean Platelet Volume 8.3 FL (6.5-10.1) Neutrophils (%) (Auto) 66.6 % (45.0-75.0) Lymphocytes (%) (Auto) 18.6 % (20.0-45.0) L Monocytes (%) (Auto) 11.6 % (1.0-10.0) H Eosinophils (%) (Auto) 2.6 % (0.0-3.0) Basophils (%) (Auto) 0.7 % (0.0-2.0) Sodium Level 140 MMOL/L (136-145) Potassium Level 4.5 MMOL/L (3.5-5.1) Chloride Level 106 MMOL/L (98-107) Carbon Dioxide Level 27 MMOL/L (21-32) Anion Gap 7 mmol/L (5-15) Blood Urea Nitrogen 5 mg/dL (7-18) L Creatinine 0.6 MG/DL (0.55-1.30) Estimat Glomerular Filtration Rate mL/min (>60) Glucose Level 80 MG/DL (74-106) Calcium Level 9.8 MG/DL (8.5-10.1) Intake and Output 04/19/18 04/20/18 19:00 07:00 Intake Total 1620 ml 840 ml Balance 1620 ml 840 ml Intake Oral 870 ml 840 ml IV Total 750 ml # Voids 2 4 Objective General Appearance: WD/WN, no apparent distress, alert EENT: PERRL/EOMI, normal ENT inspection, TMs normal Neck: non-tender, normal alignment, supple, normal inspection Cardiovascular: normal peripheral pulses, normal rate, regular rhythm, no gallop/murmur, no JVD Respiratory/Chest: chest wall non-tender, lungs clear, normal breath sounds, no respiratory distress, no accessory muscle use Abdomen: normal bowel sounds, non tender, soft, no organomegaly, no mass Extremities: normal range of motion, non-tender 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
--- NOTE | 2018-04-20 19:30 | General Progress Note ---
Assessment/Plan Status: stable, progressing Assessment/Plan encephalopathy due [place] [facility] [place] Seroquel prn and standing Subjective Date patient seen: Apr 20, 2018 Neurologic/Psychiatric: Reports: anxiety, depressed, emotional problems Allergies: Coded Allergies: NO KNOWN ALLERGIES (Verified Allergy, Unknown, 04/16/18) Objective Last 24 Hour Vital Signs Date Time Temp Pulse Resp B/P (MAP) Pulse Ox O2 Delivery O2 Flow Rate FiO2 04/20/18 16:00 98.0 79 18 109/59 (76) 99 98.0 04/20/18 12:49 124/67 (86) 94 04/20/18 12:00 98.3 81 19 117/65 (82) 98 98.3 04/20/18 08:05 Room Air 04/20/18 08:00 98.1 83 19 160/75 (103) 100 98.1 04/20/18 04:48 98.3 79 17 149/76 (100) 93 98.3 04/20/18 00:00 98.1 80 17 133/76 (95) 97 98.1 04/19/18 21:00 Room Air 04/19/18 20:24 98.4 86 18 144/81 (102) 93 98.4 Intake and Output 04/19/18 04/20/18 19:00 07:00 Intake Total 1620 ml 840 ml Balance 1620 ml 840 ml Intake Oral 870 ml 840 ml IV Total 750 ml # Voids 2 4 Laboratory Tests 04/20/18 06:00: White Blood Count 5.7, Red Blood Count 5.21, Hemoglobin 16.0, Hematocrit 48.4H, Mean Corpuscular Volume 93, Mean Corpuscular Hemoglobin 30.7, Mean Corpuscular Hemoglobin Concent 33.1, Red Cell Distribution Width 12.8, Platelet Count 249, Mean Platelet Volume 8.3, Neutrophils (%) (Auto) 66.6, Lymphocytes (%) (Auto) 18.6L, Monocytes (%) (Auto) 11.6H, Eosinophils (%) (Auto) 2.6, Basophils (%) ( Auto) 0.7, Sodium Level 140, Potassium Level 4.5, Chloride Level 106, Carbon Dioxide Level 27, Anion Gap 7, Blood Urea Nitrogen 5L, Creatinine 0.6, Estimat Glomerular Filtration Rate , Glucose Level 80, Calcium Level 9.8 Height (Feet): 5 Height (Inches): 1.00 Weight (Pounds): 106 General Appearance: WD/WN, no apparent distress, alert, confused, agitated Tereza Macedo MD Apr 20, 2018 19:30
[2018-04-21] VITALS: BP 141/72
[2018-04-21 04:00] VITALS: BP 149/79
[2018-04-21 08:00] VITALS: BP 133/68
[2018-04-21 08:17] LABS: BASOPHILS % (AUTO) 0.9 % (0.0-2.0); EOSINOPHILS % (AUTO) 3.3 % (0.0-3.0); HEMATOCRIT 42.7 % (37.0-47.0); HEMOGLOBIN 14.1 G/DL (12.0-16.0); LYMPHOCYTES % (AUTO) 17.1 % (20.0-45.0); MEAN CORPUSCULAR VOLUME 91 FL (80-99); MONOCYTES % (AUTO) 12.5 % (1.0-10.0); NEUTROPHILS % (AUTO) 66.2 % (45.0-75.0); PLATELET COUNT 253 K/UL (150-450); RED BLOOD COUNT 4.68 M/UL (4.20-5.40); RED CELL DISTRIBUTION WIDTH 12.2 % (11.6-14.8); WHITE BLOOD COUNT 4.4 K/UL (4.8-10.8)
[2018-04-21 08:49] LABS: ANION GAP 9 mmol/L (5-15); BLOOD UREA NITROGEN 13 mg/dL (7-18); CALCIUM 9.5 MG/DL (8.5-10.1); CARBON DIOXIDE 28 MMOL/L (21-32); CHLORIDE 106 MMOL/L (98-107); CREATININE 0.9 MG/DL (0.55-1.30); SODIUM 143 MMOL/L (136-145)
[2018-04-21] MEDS ORDERED: ATIVAN0.5 MG ORAL (09:47)
[2018-04-21] MEDS ORDERED: QUETIAPINE FUMA25 MG ORAL (09:48)
[2018-04-21] MEDS ORDERED: SEROQUEL25 MG ORAL (09:49)
[2018-04-21] MEDS ORDERED: ACETAMINOPHEN120 MG PO (09:51)
[2018-04-21 11:46] VITALS: BP 132/79
--- NOTE | 2018-04-21 11:46 | Internal Med Progress Note ---
Subjective Date of Service: Apr 21, 2018 Physician Name XeniaReece Attending Physician Bassem Escudero MD Current Medications Medications (Trade) Dose Ordered Sig/Lucio Route PRN Reason Start Time Stop Time Status Last Admin Dose Admin Acetaminophen (Tylenol) 650 mg Q6H PRN ORAL Mild Pain/Temp > 100.5 04/16/18 00:00 05/16/18 00:00 04/19/18 00:04 Lorazepam (Ativan) 0.5 mg Q6H PRN ORAL For Anxiety 04/16/18 06:45 04/23/18 06:44 04/19/18 20:20 Quetiapine Fumarate (SEROquel) 25 mg EVERY 6 HOURS PRN ORAL For Anxiety 04/16/18 14:00 05/16/18 13:59 Quetiapine Fumarate (SEROquel) 25 mg Q12HR ORAL 04/16/18 21:00 05/16/18 20:59 04/21/18 08:28 Allergies: Coded Allergies: NO KNOWN ALLERGIES (Verified Allergy, Unknown, 04/16/18) ROS Limited/Unobtainable: Yes Subjective 88 YO F admitted with altered mental status. Cover for Int Med-Dr Escudero. Await transfer to [facility] Objective Last Vital Signs Date Time Temp Pulse Resp B/P (MAP) Pulse Ox O2 Delivery O2 Flow Rate FiO2 04/21/18 08:01 Room Air 04/21/18 08:00 97.8 89 18 133/68 (89) 99 97.8 Laboratory Tests Test 04/21/18 06:15 White Blood Count 4.4 K/UL (4.8-10.8) L Red Blood Count 4.68 M/UL (4.20-5.40) Hemoglobin 14.1 G/DL (12.0-16.0) Hematocrit 42.7 % (37.0-47.0) Mean Corpuscular Volume 91 FL (80-99) Mean Corpuscular Hemoglobin 30.1 PG (27.0-31.0) Mean Corpuscular Hemoglobin Concent 33.0 G/DL (32.0-36.0) Red Cell Distribution Width 12.2 % (11.6-14.8) Platelet Count 253 K/UL (150-450) Mean Platelet Volume 8.4 FL (6.5-10.1) Neutrophils (%) (Auto) 66.2 % (45.0-75.0) Lymphocytes (%) (Auto) 17.1 % (20.0-45.0) L Monocytes (%) (Auto) 12.5 % (1.0-10.0) H Eosinophils (%) (Auto) 3.3 % (0.0-3.0) H Basophils (%) (Auto) 0.9 % (0.0-2.0) Sodium Level 143 MMOL/L (136-145) Potassium Level 4.0 MMOL/L (3.5-5.1) Chloride Level 106 MMOL/L (98-107) Carbon Dioxide Level 28 MMOL/L (21-32) Anion Gap 9 mmol/L (5-15) Blood Urea Nitrogen 13 mg/dL (7-18) Creatinine 0.9 MG/DL (0.55-1.30) Estimat Glomerular Filtration Rate mL/min (>60) Glucose Level 93 MG/DL (74-106) Calcium Level 9.5 MG/DL (8.5-10.1) Intake and Output 04/20/18 04/21/18 19:00 07:00 Intake Total 800 ml 600 ml Balance 800 ml 600 ml Intake Oral 800 ml 600 ml # Voids 2 3 Objective General Appearance: WD/WN, no apparent distress, alert EENT: PERRL/EOMI, normal ENT inspection, TMs normal Neck: non-tender, normal alignment, supple, normal inspection Cardiovascular: normal peripheral pulses, normal rate, regular rhythm, no gallop/murmur, no JVD Respiratory/Chest: chest wall non-tender, lungs clear, normal breath sounds, no respiratory distress, no accessory muscle use Abdomen: normal bowel sounds, non tender, soft, no organomegaly, no mass Extremities: normal range of motion, non-tender 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
--- NOTE | 2018-04-21 11:54 | Pulmonology Progress Note ---
Assessment/Plan Problems: (1) Severe protein-calorie malnutrition (2) Failure to thrive (3) Advanced dementia Assessment/Plan was agitated last night still sedated because of the ativan she got dc planning adjust psych meds/ symptomatic treatment dvt prophylaxis Subjective ROS Limited/Unobtainable: No Constitutional: Reports: no symptoms HEENT: Repors: no symptoms Respiratory: Reports: no symptoms Allergies: Coded Allergies: NO KNOWN ALLERGIES (Verified Allergy, Unknown, 04/16/18) Objective Last 24 Hour Vital Signs Date Time Temp Pulse Resp B/P (MAP) Pulse Ox O2 Delivery O2 Flow Rate FiO2 04/21/18 11:46 97.8 93 19 132/79 (96) 99 97.8 04/21/18 08:01 Room Air 04/21/18 08:00 97.8 89 18 133/68 (89) 99 97.8 04/21/18 04:00 97.0 89 17 149/79 (102) 99 97.0 04/21/18 00:00 97.3 87 18 141/72 (95) 97 97.3 04/20/18 21:00 Room Air 04/20/18 20:00 97.9 78 17 116/72 (87) 98 97.9 04/20/18 16:00 98.0 79 18 109/59 (76) 99 98.0 04/20/18 12:49 124/67 (86) 94 04/20/18 12:00 98.3 81 19 117/65 (82) 98 98.3 Intake and Output 04/20/18 04/21/18 19:00 07:00 Intake Total 800 ml 600 ml Balance 800 ml 600 ml Intake Oral 800 ml 600 ml # Voids 2 3 General Appearance: WD/WN Respiratory/Chest: chest wall non-tender, lungs clear Breasts: no masses Cardiovascular: normal peripheral pulses Abdomen: normal bowel sounds Skin: no lesions 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 Laboratory Tests 04/21/18 06:15: White Blood Count 4.4L, Red Blood Count 4.68, Hemoglobin 14.1, Hematocrit 42.7, Mean Corpuscular Volume 91, Mean Corpuscular Hemoglobin 30.1, Mean Corpuscular Hemoglobin Concent 33.0, Red Cell Distribution Width 12.2, Platelet Count 253, Mean Platelet Volume 8.4, Neutrophils (%) (Auto) 66.2, Lymphocytes (%) (Auto) 17.1L, Monocytes (%) (Auto) 12.5H, Eosinophils (%) (Auto) 3.3H, Basophils (%) ( Auto) 0.9, Sodium Level 143, Potassium Level 4.0, Chloride Level 106, Carbon Dioxide Level 28, Anion Gap 9, Blood Urea Nitrogen 13, Creatinine 0.9, Estimat Glomerular Filtration Rate , Glucose Level 93, Calcium Level 9.5 Current Medications Medications (Trade) Dose Ordered Sig/Lucio Route PRN Reason Start Time Stop Time Status Last Admin Dose Admin Acetaminophen (Tylenol) 650 mg Q6H PRN ORAL Mild Pain/Temp > 100.5 04/16/18 00:00 05/16/18 00:00 04/19/18 00:04 Lorazepam (Ativan) 0.5 mg Q6H PRN ORAL For Anxiety 04/16/18 06:45 04/23/18 06:44 04/19/18 20:20 Quetiapine Fumarate (SEROquel) 25 mg EVERY 6 HOURS PRN ORAL For Anxiety 04/16/18 14:00 05/16/18 13:59 Quetiapine Fumarate (SEROquel) 25 mg Q12HR ORAL 04/16/18 21:00 05/16/18 20:59 04/21/18 08:28 Gregor Jacobson MD Apr 21, 2018 11:54
--- NOTE | 2018-04-22 09:31 | Discharge Summary ---
Discharge Summary Discharge Summary _ DATE OF ADMISSION: 04/15/2018 DATE OF DISCHARGE: 04/21/2018 CONSULTANTS: Dr. Gregor Macedo BRIEF HOSPITAL COURSE: Patient is an 88-year-old delightful female, with past medical history significant for Alzheimer's dementia, who initially presented to [facility], due to confusion and altered mental status. Patient was brought in by EMS complaining of being more altered than usual. She was found by the landlord sitting on the floor and was soiled. Shortly after initial evaluation, patient was transferred to [facility] for further evaluation. Patient was transferred to [facility] for workup of encephalopathy possibly due to dehydration. She was placed on IV hydration. Social service was called for home safety evaluation. She was encouraged po intake. Urinalysis showed pyuria. Initial urine culture showed growth of Escherichia coli however with low colony count. Repeat urine culture via straight catheterization showed negative results. Psychiatric evaluation was done. Per psychiatrist, encephalopathy was secondary to general medical condition. She was started on Seroquel. She was initially provided a sitter for patient's safety. She was placed on restraints. Sitter was eventually discontinued. She was given physical therapy and occupational therapy. Electrolytes were replenished. Mental status improved. Electrolytes were normal. Vital signs were stable. She was discharged to alf. FINAL DIAGNOSES: Acute toxic metabolic encephalopathy possibly due to dehydration Advanced Alzheimer's dementia Dehydration Severe protein calorie malnutrition Failure to thrive Hypokalemia Pyuria, possible UTI with Escherichia coli DISPOSITION: Patient was discharged to [facility] convalescent. DISCHARGE MEDICATIONS: Refer to Discharge Medication List. I have been assigned to dictate discharge summary on this account, and I was not involved in the patient's management. Catherine Cabrera NP Apr 22, 2018 09:31
== END 2018-04-21 11:45 | DRG 91 ==
LOC: 3E 21:30
DX: G92 Toxic encephalopathy (principal); E43 Unspecified severe protein-calorie malnutrition; N39.0 Urinary tract infection, site not specified; G30.9 Alzheimer's disease, unspecified; F02.80 Dementia in other diseases classified elsewhere, unspecified severity, without behavioral disturbance, psychotic disturbance, mood disturbance, and anxiety; E86.0 Dehydration; E87.6 Hypokalemia; R62.7 Adult failure to thrive; B96.20 Unspecified Escherichia coli [E. coli] as the cause of diseases classified elsewhere
CPT/HCPCS: 36415; 80048; 80053; 83735; 84100; 84484; 85025; 87086; 87181; 97802; J8499